=== PATIENT | male | born 1950 | race Caucasian/White ===

== ENCOUNTER 2019-10-17 10:23 | Outpatient (CLI) | payer OTHER, SELFPAY ==
--- NOTE | ~2019-10-17 | CT_ITS ---
EXAMINATION: CT lung screening EXAM DATE: 10/17/2019 11:01 INDICATION: Personal history of nicotine dependence. TECHNIQUE: Spiral low dose CT of the chest without contrast. Axial, coronal and sagittal images were reviewed. The dose-length product (DLP) for this examination was 230.88 mGy-cm. The exposure was t ailored according to patient size (auto mA exposure control), and iterative reconstruction (ASIR) was used as additional dose reduction technique. There is no prior study for comparison. FINDINGS: Linear right basilar atelectasis.There is mild emphysema and hyperinflation. Tracheobronch ial tree is patent. There is no mediastinal, hilar or axillary lymphadenopathy. There are no pleu ral or pericardial effusions. There is no pneumothorax. Heart normal in size. There is moderate coronary arterial calcification, arterial sclerosis. Upper abdomen is unremarkable. There is mild thoracic spondylosis without osteoblastic or osteolytic lesions identified. IMPRESSION: Lung-RADS category 1, negative (<1%chance of malignancy); recommend continued LDCT screen ing in 1 year. > Reviewed, dictated and finalized at location B. S GLAZIER IMPRESSION: Lung-RADS category 1, negative (<1%chance of malignancy); recommend continued LDCT screening in 1 year. >
== END 2019-10-17 10:24 | disposition home or self-care (01) ==
PROVIDERS: PCP Internal Medicine; Visit Provider Internal Medicine
DX: Z12.2 Encounter for screening for malignant neoplasm of respiratory organs (principal); Z87.891 Personal history of nicotine dependence
CPT/HCPCS: G0297

== ENCOUNTER 2019-11-17 11:23 | Outpatient (CLI) | payer OTHER, SELFPAY | END 2019-11-17 11:24 | disposition home or self-care (01) | PROVIDERS: PCP Internal Medicine; Visit Provider Internal Medicine | DX: R19.7 Diarrhea, unspecified (principal) | CPT/HCPCS: 87045; 87046; 87324; 87427 ==

== ENCOUNTER 2020-01-04 11:48 | Outpatient (CLI) | payer OTHER, SELFPAY ==
[2020-01-04 12:25] LABS: Basophils Percent Auto 0.3 % (0.2-1.2); Eosinophils Absolute Auto 0.2 K/mm3 (0-0.3); Hematocrit 39.9 % (42.0-52.0); Hemoglobin 13.7 g/dL (14.0-18.0); Immature Granulocyte Absolute 0.02 K/mm3 (0.00-0.031); Immature Granulocyte Percent A 0.3 % (0-0.5); Lymphocytes Absolute Auto 2.21 K/mm3 (0.9-3.2); Lymphocytes Percent Auto 35.4 % (18.3-44.2); Mean Corpuscular HGB Conc 34.3 g/dl (32-36); Mean Corpuscular Hemoglobin 33.6 pg (26-34); Mean Corpuscular Volume 97.8 fl (80-100); Mean Platelet Volume 9.2 fl (7.4-10.4); Monocytes Absolute Auto 0.5 K/mm3 (0.1-0.6); Monocytes Percent Auto 8.5 % (2.6-8.5); Neutrophils Absolute Auto 3.3 K/mm3 (1.3-6.7); Neutrophils Percent Auto 52.5 % (45.5-73.1); Platelet Count Result 185 k/mm3 (150-375); Red Blood Count 4.08 M/mm3 (4.6-6.20); Red Cell Distribution Width 11.7 % (11.5-14.5); White Blood Count 6.3 K/mm3 (4.5-10.0)
[2020-01-04 12:39] LABS: Alanine Aminotransferase 18 U/L (4-50); Albumin Level 4.8 g/dL (3.5-5.1); Alkaline Phosphatase 47 U/L (38-126); Aspartate Amino Transferase 25 U/L (17-59); Bilirubin,Total 0.4 mg/dL (0.2-1.3); Blood Urea Nitrogen 16 mg/dL (9-20); Calcium 9.8 mg/dL (8.4-10.2); Carbon Dioxide 28 mmol/L (22-30); Chloride 101 mmol/L (98-107); Estimated Glomerular Filt Rate > 60; Glucose 126 mg/dL (75-110); Potassium 4.5 mmol/L (3.4-5.0); Sodium 136 mmol/L (137-145)
== END 2020-01-04 11:49 | disposition home or self-care (01) ==
LOC: ANHLAB 11:56
PROVIDERS: PCP Internal Medicine; Visit Provider Internal Medicine
DX: R53.1 Weakness (principal); R53.83 Other fatigue
CPT/HCPCS: 36415; 80053; 84443; 85025

== ENCOUNTER → 2020-04-23 09:55 | Outpatient (CLI) | payer OTHER, SELFPAY ==
--- NOTE | ~2020-04-23 | MR_ITS ---
EXAMINATION: MR lumbar spine wo [facility] EXAM DATE: 04/23/2020 10:59 INDICATION: Low back pain, bilateral leg pain. TECHNIQUE: Multi-sequential, multiplanar MR images of the lumbar spine were obtained without contrast . Sagittal T1, T2, T2 fat saturation images. Axial T2 weighted images. Comparison is made to prior examination from 01/05/2018. FINDINGS: There is moderate disc disease at L3-4 and L5-S1, mild to moderate from T11 through L3. The re are no suspicious marrow signal abnormalities. The conus medullaris terminates at the L2 level and has normal signal intensity and morphology. There is 3 mm of retrolisthesis L3 on L4, 2 mm retrolis thesis L4 on L5 and 4 mm retrolisthesis L5 on S1. Paraspinal soft tissue is unremarkable. Level by level evaluation: T12-L1: Disc does not extend beyond the endplate margin. Facet arthropathy: Mild. Neural foraminal stenosis: No stenosis. Central canal stenosis: No stenosis. L1-L2: Disc does not extend beyond the endplate margin. Facet arthropathy: Minimal. Neural foraminal stenosis: No stenosis. Central canal stenosis: No stenosis. L2-L3: There is a mild diffuse disc bulge. Facet arthropathy: Mild. Neural foraminal stenosis: No stenosis. Central canal stenosis: No stenosis. L3-L4: There is a mild to moderate diffuse disc bulge. Facet arthropathy: Mild to moderate. Neural foraminal stenosis: Mild bilateral. Central canal stenosis: Minimal. L4-L5: There is a mild diffuse disc bulge. Facet arthropathy: Mild to moderate. Neural foraminal stenosis: Mild to moderate bilateral. Central canal stenosis: Minimal. L5-S1: There is a mild to moderate diffuse disc bulge. Facet arthropathy: Mild to moderate. Neural foraminal stenosis: Moderate left, mild to moderate right. Central canal stenosis: Mild. Compared to 2018, slight interval progression. IMPRESSION: Overall moderate lumbar spondylosis. Reviewed, dictated and finalized at location A.
== END ==
PROVIDERS: Visit Provider Nurse Practitioner Family
DX: M47.896 Other spondylosis, lumbar region (principal)
CPT/HCPCS: 72148

== ENCOUNTER 2020-05-21 02:13 | Emergency (ER) | payer OTHER, SELFPAY ==
--- NOTE | ~2020-05-21 | CT_ITS ---
EXAMINATION: CT brain wo con INDICATION: Left-sided headache and migraine, dizziness COMPARISON: None TECHNIQUE: Standard unenhanced head CT. The dose-length product (DLP) was 605.33 mGy-cm. The mA was a djusted according to patient size. Iterative reconstruction technique was employed. FINDINGS: There is no acute intraparenchymal hemorrhage. No evidence of mass lesion. No evidence of a cute infarction. There is symmetric low attenuation medially in the frontal lobes which may reflect p rior trauma. There is mild periventricular and subcortical hypodensity probably related to small vess el ischemic disease. There is mild prominence of the sulci and ventricles related to cerebral atrophy . Intracranial calcified cerebral atherosclerosis is noted. There are no extra-axial collections. The re is no mass effect or midline shift. The orbits and soft tissues are unremarkable. The visualized sinuses and mastoid air cells are well aerated. IMPRESSION: 1. No acute intracranial abnormality. 2. Age related findings. 3. Changes in the frontal lobes which may reflect prior trauma. Reviewed, dictated and finalized at location A.
[2020-05-21 02:16] VITALS: BP 137/94; PULSE 112; RESP 20; TEMP 36.3; O2SAT 100
[2020-05-21 02:46] VITALS: BP 138/89; PULSE 99; RESP 18; O2SAT 94
--- NOTE | 2020-05-21 02:48 | ED.HA ---
HPI - Headache General Chief Complaint: Headache Stated Complaint: headache Time Seen by Provider: 05/21/20 02:20 History of Present Illness HPI Narrative: Patient is a 69-year-old male who presents ER with left-sided headache. Began at 9 PM and is gradually worsened since then. It sharp and throbbing on the left side and radiates from the front to the back. Mild blurring in his left eye. No trauma. Has not had a headache like this before. Denies nausea/vomiting/runny nose/sore throat/productive cough. Deeply takes low-dose aspirin. No numbness or tingling in arm or leg. No focal weakness. Related Data Home Medications Medication Instructions Recorded Confirmed ascorbate calcium (vitamin C) 500 500 mg PO DAILY 08/01/19 04/04/20 mg tablet clobetasol 0.05 % lotion 1 applic TOPICAL DAILY 08/01/19 04/04/20 apremilast 30 mg tablet 30 mg PO BID 01/05/20 04/04/20 aspirin 81 mg tablet,delayed 81 mg PO DAILY 01/05/20 04/04/20 release calcium carbonate 600 mg calcium 600 mg PO BID tablet 01/05/20 04/04/20 (1,500 mg) tablet multivitamin 1 tablet PO DAILY 01/05/20 04/04/20 rosuvastatin 20 mg tablet 20 mg PO DAILY 01/05/20 04/04/20 Allergies Allergy/AdvReac Type Severity Reaction Status Date / Time No Known Allergies Allergy Verified 05/21/20 02:27 Review of Systems Review of Systems: All systems reviewed & are unremarkable except as noted in HPI and below Constitutional: Constitutional: Denies chills, Denies fever(s) and Denies weakness Eyes: Eyes: Reports change in vision and Reports photophobia ENT: Denies nasal congestion and Denies sore throat Neurologic: Reports headache(s), Denies focal weakness and Denies numbness [facility] Past Medical History Medical History (Updated 05/21/20 @ 03:47 by Richard Sierra MD) Anxiety Atherosclerotic heart disease of [place] coronary artery without angina pectoris Diabetic peripheral neuropathy associated with type 2 diabetes mellitus Enlarged prostate with lower urinary tract symptoms (LUTS) Essential (primary) hypertension Fibromyalgia Gastro-esophageal reflux disease without esophagitis Hyperlipidemia LDL goal <70 Low back pain with sciatica Psoriasis Surgical History Surgical History (Updated 05/21/20 @ 02:51 by Richard Sierra MD) History of colonoscopy History of percutaneous coronary intervention Social History Social History Smoking status: Former smoker Second hand tobacco smoke exposure: Yes Smoking end date: 09/20/81 Alcohol intake: never Gender identity (if verbalized by the patient): Male Exam Narrative: Exam Narrative: GENERAL: Well-appearing, well-nourished, and in no acute distress. HEAD: Normocephalic, atraumatic. Eyes: PERRLA, EOMI. CHEST: Clear to auscultation. No respiratory distress. HEART: Regular rate and rhythm. Normal peripheral pulses. EXTREMITIES: Normal range of motion. No edema. SKIN: Warm, dry, no rash. NEURO: Alert and oriented x3. PSYCH: Normal mood and affect. Course Course Emergency Course: Headache is gone from 06/29 to 01/27 after IV Reglan/Benadryl/Toradol. Vision has normalized. Vital Signs Vital signs: Vital Signs Temperature 97.4 F L 05/21/20 02:16 Pulse Rate 112 H 05/21/20 02:16 Respiratory Rate 20 05/21/20 02:16 Blood Pressure 137/94 H 05/21/20 02:16 Pulse Oximetry 100 05/21/20 02:16 Temperature 97.4 F L 05/21/20 02:16 Pulse Rate 79 05/21/20 03:31 Respiratory Rate 18 05/21/20 03:31 Blood Pressure 118/71 05/21/20 03:31 Pulse Oximetry 95 05/21/20 03:31 MDM - Headache Imaging Data Radiologist's impression: CT brain: No acute intracranial hemorrhage, midline shift, or mass-effect. Discharge Plan Discharge Clinical Impression: Headache Patient Disposition: Home, Self-Care Condition: Stable Instructions: Acute Headache (ED) Additional Instructions: Return the ER if you have chest sylvester
[2020-05-21] MEDS: SODIUM CHLORIDE 0.9% IV 1,000 ML 999 ML IV CONT (02:50)
[2020-05-21] MEDS: diphenhydrAMINE HCl INJ 50 MG/ML VIAL 25 MG IV PUSH (02:52)
[2020-05-21] MEDS: METOCLOPRAMIDE HCL INJ 10 MG/2 ML VIAL IV PUSH (02:52)
[2020-05-21] MEDS: KETOROLAC 30 MG/ML VIAL (*BKC) IV PUSH (02:53)
[2020-05-21 03:31] VITALS: BP 118/71; PULSE 79; RESP 18; O2SAT 95
[2020-05-21 04:05] VITALS: BP 112/85; PULSE 78; RESP 18; O2SAT 95
== END 2020-05-21 04:10 | disposition home or self-care (01) ==
PROVIDERS: Emergency Provider Emergency Medicine; PCP Internal Medicine
DX: R51 Headache (principal); I25.10 Atherosclerotic heart disease of native coronary artery without angina pectoris; E11.42 Type 2 diabetes mellitus with diabetic polyneuropathy; N40.0 Benign prostatic hyperplasia without lower urinary tract symptoms; I10 Essential (primary) hypertension; M79.7 Fibromyalgia; K21.9 Gastro-esophageal reflux disease without esophagitis; E78.5 Hyperlipidemia, unspecified; Z87.891 Personal history of nicotine dependence; Z79.82 Long term (current) use of aspirin
CPT/HCPCS: 70450; 96361; 96374; 96375; 99284; J1200; J1885; J2765; J7030

== ENCOUNTER 2020-06-20 13:45 | Outpatient (RCR) | payer OTHER, SELFPAY ==
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
--- NOTE | 2020-06-24 12:37 | PCPTNOTE ---
PT called and cancelled due to illness.
--- NOTE | 2020-07-11 12:40 | PCPTNOTE ---
Patient called & cancelled scheduled appointment this date due to feeling ill. He has 1 additional appt scheduled.
--- NOTE | 2020-07-15 07:56 | PCPTNOTE ---
Patient called & cancelled scheduled appointment this date due to being sick. He did not reschedule his re-eval. Will plan to DC due to excessive cancellation of therapy visits.
--- NOTE | 2020-07-16 10:22 | PCPTNOTE ---
Admitting Provider: Attending Provider: Barron Miles MD Patient:Norbert Ortega Date of :1950 Discharge Note Patient has not returned for any further treatments since 06/20/2020, therefore he will be discharged at this time. Patient?s initial visit was on 06/14/2020 13:30 and he) had a total of 3 visits. The goals have been not met. Thank you for referring this patient to [facility]. Please review, sign, date and return this discharge summary MARISSA. I have been updated about the patient's current status and I agree with discharge from the above service at this time. Referring Physician Date
== END 2020-07-16 11:30 | disposition home or self-care (01) ==
LOC: ANHPT 13:45
PROVIDERS: Visit Provider Orthopaedic Surgery
DX: M11.262 Other chondrocalcinosis, left knee (principal); M11.261 Other chondrocalcinosis, right knee; M25.561 Pain in right knee; M25.562 Pain in left knee
CPT/HCPCS: 97110; 97162

== ENCOUNTER → 2020-09-26 10:53 | Outpatient (CLI) | payer OTHER, SELFPAY ==
--- NOTE | ~2020-09-26 | MR_ITS ---
EXAMINATION: MR knee RT wo con DATE: 09/26/2020 11:32 INDICATION: Right knee pain. TECHNIQUE: Magnetic resonance imaging (MRI) of the right knee was performed without intravenous contr ast. Sequences included axial PD-weighted FS FSE, coronal PD-weighted FSE and PD-weighted FS FSE, sag ittal PD-weighted FSE, and sagittal T2-weighted FS FSE. COMPARISON: Right knee radiographs 05/30/2020 FINDINGS: Medial compartment: There is an undersurface horizontal tear of medial meniscus at the junction of the body and posterior horn. Medial compartment cartilage is normal. Lateral compartment: Lateral meniscus is normal. Lateral compartment cartilage is normal. Patellofemoral compartment: There is deep partial thickness cartilage loss of patellar medial facet and median ridge with mild retana bchondral edema-like marrow signal intensity. Trochlear cartilage is normal. Ligaments and tendons: The anterior and posterior cruciate ligaments are normal. Medial collateral ligament and lateral portillo ateral ligament complex are normal. There is mild patellar tendinopathy. Fluid: There is no knee joint effusion. There is mild superficial infrapatellar bursitis. IMPRESSION: 1. Moderate chondrosis of patellofemoral compartment. 2. Tear of medial meniscus. Reviewed, dictated and finalized at location A. LE WIRE SAW OPERATOR
== END ==
PROVIDERS: Visit Provider Nurse Practitioner Family
DX: S83.241D Other tear of medial meniscus, current injury, right knee, subsequent encounter (principal); X58.XXXD Exposure to other specified factors, subsequent encounter
CPT/HCPCS: 73721

== ENCOUNTER 2021-03-05 11:35 | Outpatient (CLI) | payer OTHER, SELFPAY ==
[2021-03-05 12:13] LABS: Hemoglobin A1C 7.2 % (<5.7)
[2021-03-05 12:16] LABS: Alanine Aminotransferase 21 U/L (4-50); Albumin Level 4.6 g/dL (3.5-5.1); Alkaline Phosphatase 68 U/L (38-126); Anion Gap 8 mmol/L (8-16); Aspartate Amino Transferase 32 U/L (17-59); Bilirubin,Total 0.3 mg/dL (0.2-1.3); Blood Urea Nitrogen 12 mg/dL (9-20); Calcium 9.8 mg/dL (8.4-10.2); Carbon Dioxide 29 mmol/L (22-30); Chloride 105 mmol/L (98-107); Cholesterol 167 mg/dL (0-200); Estimated Glomerular Filt Rate > 60; Glucose 144 mg/dL (75-110); HDL Direct 37 mg/dL; Potassium 4.8 mmol/L (3.4-5.0); Sodium 142 mmol/L (137-145); Triglycerides 383 mg/dL (<150)
[2021-03-05 12:27] LABS: LDL Cholesterol Direct 53 mg/dL
== END 2021-03-05 11:36 | disposition home or self-care (01) ==
PROVIDERS: PCP Internal Medicine; Visit Provider Nurse Practitioner
DX: E78.5 Hyperlipidemia, unspecified (principal); E11.42 Type 2 diabetes mellitus with diabetic polyneuropathy
CPT/HCPCS: 36415; 80053; 80061; 83036

== ENCOUNTER 2021-07-01 12:23 | Outpatient (CLI) | payer OTHER, SELFPAY ==
[2021-07-01 13:22] LABS: Alanine Aminotransferase 14 U/L (4-50); Albumin Level 4.5 g/dL (3.5-5.1); Alkaline Phosphatase 61 U/L (38-126); Anion Gap 6 mmol/L (8-16); Aspartate Amino Transferase 22 U/L (17-59); Bilirubin,Total 0.4 mg/dL (0.2-1.3); Blood Urea Nitrogen 15 mg/dL (9-20); Calcium 9.6 mg/dL (8.4-10.2); Carbon Dioxide 32 mmol/L (22-30); Chloride 100 mmol/L (98-107); Cholesterol 125 mg/dL (0-200); Estimated Glomerular Filt Rate > 60; Glucose 123 mg/dL (65-110); HDL Direct 31 mg/dL; Potassium 4.8 mmol/L (3.4-5.0); Sodium 138 mmol/L (137-145); Triglycerides 218 mg/dL (<150)
[2021-07-01 13:33] LABS: LDL Cholesterol Direct 48 mg/dL
[2021-07-01 17:24] LABS: Hemoglobin A1C 6.4 % (<5.7)
== END 2021-07-01 12:24 | disposition home or self-care (01) ==
PROVIDERS: PCP Internal Medicine; Visit Provider Nurse Practitioner
DX: E78.5 Hyperlipidemia, unspecified (principal); E11.9 Type 2 diabetes mellitus without complications
CPT/HCPCS: 36415; 80053; 80061; 83036

== ENCOUNTER → 2021-07-10 10:12 | Outpatient (CLI) | payer OTHER, SELFPAY ==
--- NOTE | ~2021-07-10 | MR_ITS ---
EXAMINATION: MR lumbar spine wo con DATE: 07/10/2021 10:56 INDICATION: Lumbar radiculopathy. TECHNIQUE: Magnetic resonance imaging (MRI) of the lumbar spine was performed without intravenous con trast. Sequences included sagittal T2-weighted FSE, sagittal T2-weighted FS FSE, sagittal T1-weighted FSE, and axial T2-weighted FSE. COMPARISON: Lumbar spine MRI 04/23/2020, chest CT 10/17/2019 FINDINGS: There is 6 degrees levocurvature of lumbar spine. L5 is a transitional segment. There is mi ld chronic anterior wedging of T11-L2. There is 3 mm retrolisthesis of L2 on L3 and L4 on L5. There i s moderately decreased disc height at L2-L3 and severely decreased disc height at L4-L5. The distal s mario cord signal intensity is normal. The conus medullaris is at L1. The following disc levels are s pecifically discussed: L1-L2: The disc is bulging. There is no facet joint osteoarthritis. There is no neural foraminal sten osis. There is mild central canal stenosis. L2-L3: The disc is bulging and has an annular fissure. There is mild left facet joint osteoarthritis. There is mild bilateral neural foraminal stenosis. There is mild central canal stenosis. L3-L4: The disc is bulging and has an annular fissure. There is mild bilateral facet joint osteoarthr itis. There is moderate right and mild left neural foraminal stenosis. There is mild central canal st enosis. L4-L5: The disc is bulging and has an annular fissure. There is mild bilateral facet joint osteoarthr itis. There is mild bilateral neural foraminal stenosis. There is mild central canal stenosis. L5-S1: The disc does not extend beyond the endplate margin. There is mild bilateral facet joint osteo arthritis. There is mild right and moderate left neural foraminal stenosis. There is no central canal stenosis. IMPRESSION: 1. Severe lumbar spondylosis, stable from 04/23/2020. Reviewed, dictated and finalized at location A.
== END ==
PROVIDERS: PCP Internal Medicine; Visit Provider Nurse Practitioner Family
DX: M47.26 Other spondylosis with radiculopathy, lumbar region (principal)
CPT/HCPCS: 72148

== ENCOUNTER 2022-02-26 11:47 | Outpatient (CLI) | payer OTHER, SELFPAY ==
[2022-02-26 12:43] LABS: Alanine Aminotransferase 24 U/L (6-50); Albumin Level 4.6 g/dL (3.5-5.1); Alkaline Phosphatase 72 U/L (38-126); Anion Gap 6 mmol/L (8-16); Aspartate Amino Transferase 32 U/L (17-59); Bilirubin,Total 0.4 mg/dL (0.2-1.3); Blood Urea Nitrogen 10 mg/dL (9-20); Calcium 9.3 mg/dL (8.4-10.2); Carbon Dioxide 32 mmol/L (22-30); Chloride 103 mmol/L (98-107); Cholesterol 140 mg/dL (0-200); Estimated Glomerular Filt Rate > 60; Glucose 124 mg/dL (65-110); HDL Direct 47 mg/dL; Potassium 4.8 mmol/L (3.4-5.0); Sodium 141 mmol/L (137-145); Triglycerides 192 mg/dL (<150)
[2022-02-26 12:54] LABS: LDL Cholesterol Direct 55 mg/dL
[2022-02-26 13:13] LABS: Prostate Specific Antigen 0.3 ng/mL (< OR = 4.0)
== END 2022-02-26 11:48 | disposition home or self-care (01) ==
LOC: ANHLAB 11:50
PROVIDERS: PCP Internal Medicine; Visit Provider Nurse Practitioner
DX: E11.9 Type 2 diabetes mellitus without complications (principal); E78.5 Hyperlipidemia, unspecified; Z12.5 Encounter for screening for malignant neoplasm of prostate; I10 Essential (primary) hypertension
CPT/HCPCS: 36415; 80053; 80061; 83036; 84153; G0103

== ENCOUNTER 2022-03-26 09:59 | Emergency (ER) | payer OTHER, MEDICAID, SELFPAY ==
--- NOTE | ~2022-03-26 | XR_ITS ---
EXAMINATION: XR shoulder LT min 2V INDICATION: Left shoulder pain TECHNIQUE: Four views of the left shoulder are submitted. COMPARISON: None FINDINGS: A tiny heterotopic ossification projects at the superolateral aspect of the acromion. There appears to be changes of distal clavicle resection. There is mild osteoarthritis of the glenohumeral joint. Soft tissues are unremarkable. IMPRESSION: 1. Heterotopic ossification projecting at the superolateral aspect of the acromion which could reflec t tiny fracture. Reviewed, dictated and finalized at location B. IMPRESSION: 1. Heterotopic ossification projecting at the superolateral aspect of the acrom ion which could reflect tiny fracture.
--- NOTE | ~2022-03-26 | XR_ITS ---
EXAMINATION: XR shoulder RT min 2V INDICATION: Right shoulder pain TECHNIQUE: Four views of the right shoulder are submitted. COMPARISON: 11/25/2009 FINDINGS: Normal alignment. No fracture. There appear to be changes of interval distal clavicle resec tion. There is moderate osteoarthritis of the glenohumeral joint. There are partially imaged changes of fusion procedure in the cervical spine. There is lateral soft tissue swelling of the shoulder. IMPRESSION: 1. No acute osseous abnormality. Reviewed, dictated and finalized at location B.
[2022-03-26 09:58] VITALS: BP 126/76; PULSE 71; RESP 16; TEMP 36.6; O2SAT 95
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
[2022-03-26] MEDS: IBUPROFEN 400 MG TABLET PO (10:14)
--- NOTE | 2022-03-26 11:25 | PC.NURSE ---
[facility] contacted for transfer. eta 1200
[2022-03-26 14:59] VITALS: BP 118/71; RESP 16
== END 2022-03-26 14:50 ==
PROVIDERS: Emergency Provider Emergency Medicine; PCP Internal Medicine
DX: S42.92XA Fracture of left shoulder girdle, part unspecified, initial encounter for closed fracture (principal); S30.0XXA Contusion of lower back and pelvis, initial encounter; I25.10 Atherosclerotic heart disease of native coronary artery without angina pectoris; E11.42 Type 2 diabetes mellitus with diabetic polyneuropathy; I10 Essential (primary) hypertension; N40.1 Benign prostatic hyperplasia with lower urinary tract symptoms; M79.7 Fibromyalgia; I25.2 Old myocardial infarction; E78.5 Hyperlipidemia, unspecified; M17.0 Bilateral primary osteoarthritis of knee; K21.9 Gastro-esophageal reflux disease without esophagitis; Z87.820 Personal history of traumatic brain injury; Z95.5 Presence of coronary angioplasty implant and graft; F41.9 Anxiety disorder, unspecified; F32.A Depression, unspecified; Z79.84 Long term (current) use of oral hypoglycemic drugs; Z79.82 Long term (current) use of aspirin; W18.30XA Fall on same level, unspecified, initial encounter
CPT/HCPCS: 73030; 99284; A4565; A9270

== ENCOUNTER 2024-07-10 14:59 | Emergency (ER) | payer MEDICARE, MEDICAID, SELFPAY ==
[2024-07-10] VITALS (11 sets, daily range): BP systolic 117–151; BP diastolic 61–79; PULSE 61–87; RESP 12–87; TEMP 36.6–36.8; O2SAT 92–97
--- NOTE | ~2024-07-10 | CT_ITS ---
EXAMINATION: CT abd pelvis lumbar w con DATE: 07/10/2024 20:23 INDICATION: Mid to low back pain post fall with bruising at the left back TECHNIQUE: Computed tomography (CT) of the abdomen, pelvis and lumbar spine was performed with 100 mL Omnipaque-350 intravenous contrast. Automated exposure control and iterative reconstruction techniqu e were employed. The dose-length product was 994.68 mGy-cm. COMPARISON: Lumbar spine MR dated 07/10/2021 FINDINGS: Abdomen and pelvis: Mild dependent atelectasis in the bilateral lower lobes. Heart size is normal. Venous sternotomy wire s likely related to prior coronary artery bypass grafting with coronary artery atherosclerotic calcif ications and/or stenting. Aortic valve repair. Liver, gallbladder, pancreas and bilateral adrenal gla nds are normal. Multiple splenic calcifications consistent with old granulomatous disease. 1.6 cm cys t at the upper pole the left kidney and tiny cyst at the upper pole of the left kidney. Moderate sigm oid diverticulosis without adjacent from trace stranding to suggest diverticular colitis. No bowel ob struction. The appendix is not visualized. No pericecal inflammatory change to suggest acute appendic itis. Bladder is normal. No free intraperitoneal gas or fluid. No pathologically enlarged abdominal o r pelvic lymphadenopathy. There is some calcification along the healing subacute fracture of the post erolateral left ninth rib. There is an acute minimally displaced posterior left 11th rib fracture. Lumbar spine: Transitional sacralized L5 segment. Unchanged 3 mm retrolisthesis L2 on L3 and L4 on L5. Unchanged ch ronic mild anterior wedging at T11-L2. No acute fracture. Moderate disc height loss and vacuum phenom kevin at L2-L3 and L4-L5. Mild disc height loss at T10-T11 through T12-L1. There are disc bulges result ing in mild central canal stenosis from L1-L2 through L4-L5. Multilevel mild lumbar facet osteoarthri tis. There is moderate neural foraminal stenosis bilaterally at L2-L3 through L4-L5 and mild neural f oraminal stenosis bilaterally at L1-L2. IMPRESSION: 1. Acute minimally displaced posterior left 11th rib fracture and healing subacute left ninth rib fra cture. 2. No acute intra-abdominal/pelvic process. 3. Moderate lumbar spondylosis with no acute osseous abnormality. Reviewed, dictated and finalized at location A. IMPRESSION: 1. Acute minimally displaced posterior left 11th rib fracture and healing subac makah left ninth rib fracture. 2. No acute intra-abdominal/pelvic process. 3. Moderate lumbar spondylosis with no acute osseous abnormality.
--- NOTE | 2024-07-10 17:04 | PC.NURSE ---
Patient presents to ED for back pain. Fall 2 days ago, PMH of vertigo. Patient currently rates pain at a 10 on numerical scale. Patient has limited movement with ambulation/ transfers. Patient is accompanied by Daughter and Son N Law.
[2024-07-10] MEDS: KETOROLAC 30 MG/ML VIAL (*BKC) IV PUSH (17:43)
[2024-07-10] MEDS: methylPREDNISolone SOD SUCC 125 MG VIAL IV PUSH (17:43)
[2024-07-10] MEDS: HYDROcodone/acetaminophen (*CRX) 5-325 MG TABLET 1 TAB PO (17:43)
[2024-07-10] MEDS: methocarbamoL 500 MG TABLET 1000 MG PO (17:45)
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
[2024-07-10] MEDS: ONDANSETRON INJ 4 MG/2 ML VIAL IV PUSH (19:21)
[2024-07-10] MEDS: MORPHINE SULFATE (*CRX) 4 MG/ML INJ IV PUSH (19:21)
[2024-07-10 20:08] LABS: Estimated CRCL calculation 80 ml/min; Estimated Glomerular Filt Rate > 60
== END 2024-07-10 22:17 | disposition home or self-care (01) ==
PROVIDERS: Emergency Provider Physician Assistant; PCP Internal Medicine
DX: S22.32XA Fracture of one rib, left side, initial encounter for closed fracture (principal); M47.816 Spondylosis without myelopathy or radiculopathy, lumbar region; F41.9 Anxiety disorder, unspecified; M19.90 Unspecified osteoarthritis, unspecified site; I25.10 Atherosclerotic heart disease of native coronary artery without angina pectoris; F32.A Depression, unspecified; E11.42 Type 2 diabetes mellitus with diabetic polyneuropathy; N40.1 Benign prostatic hyperplasia with lower urinary tract symptoms; I10 Essential (primary) hypertension; M79.7 Fibromyalgia; K21.9 Gastro-esophageal reflux disease without esophagitis; I25.2 Old myocardial infarction; E78.5 Hyperlipidemia, unspecified; W01.0XXA Fall on same level from slipping, tripping and stumbling without subsequent striking against object, initial encounter
CPT/HCPCS: 72132; 74177; 96374; 96375; 99284; A9270; J1885; J2270; J2405; J2919; Q9967